=== PATIENT | male | born 1995 | race Caucasian/White ===

== ENCOUNTER 2018-03-19 10:25 | Emergency (ER) | payer SELFPAY ==
[~2018-03-19] VITALS: Ht 185.4 cm; Wt 97.5 kg
[2018-03-19 10:29] VITALS: BP 139/75
--- NOTE | 2018-03-19 10:33 | NUR ---
Patient ambulated to bed 3 with family. RN evaluating patient at bedside.
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
--- NOTE | 2018-03-19 10:41 | NUR ---
Dr. Pat evaluating patient at bedside.
[2018-03-19] MEDS ORDERED: IBUPROFEN 600 MG TAB PO ONE (10:45)
[2018-03-19] MEDS ORDERED: traMADol 50 MG TAB PO ONE (10:45)
--- NOTE | 2018-03-19 10:54 | NUR ---
radio frequency technician at bedside.
--- NOTE | 2018-03-19 11:30 | NUR ---
PT. RESTING COMFORTABLY IN BED, RR EVEN AND UNLABORED. FAMILY MEMBER AT BEDSIDE. WILL CONTINUE TO MONITOR.
[2018-03-19 12:38] VITALS: BP 130/74
== END 2018-03-19 12:38 | disposition home or self-care (01) ==
LOC: MED 10:25
DX: M25.562 Pain in left knee (principal); V03.99XA Pedestrian with other conveyance injured in collision with car, pick-up truck or van, unspecified whether traffic or nontraffic accident, initial encounter; Y93.89 Activity, other specified; Y92.039 Unspecified place in apartment as the place of occurrence of the external cause; Y99.8 Other external cause status
CPT/HCPCS: 29505; 73562; 99284